=== PATIENT | female | born 1980 | race African-American/Black ===

== ENCOUNTER 2017-06-05 15:04 | Emergency (ER) | payer OTHER ==
[~2017-06-05] VITALS: Ht 157.5 cm; Wt 90.3 kg
[~2017-06-05 15:04] MED LIST: BACTRIM DS TAB1 EAC1 ORAL; CEPHALEXIN500 MG ORAL; HYDROCODON-ACE1 EA15 ORAL; NITROFURANTOIN100 M2 ORAL; VALACYCLOVIR500 MG ORAL
[2017-06-05 16:35] LABS: BASOPHILS % (AUTO) 0.7 % (0.0-2.0); EOSINOPHILS % (AUTO) 0.5 % (0.0-3.0); LYMPHOCYTES % (AUTO) 23.4 % (20.0-45.0); MEAN CORPUSCULAR HGB CONC 35.4 G/DL (32.0-36.0); MEAN CORPUSCULAR VOLUME 102 FL (80-99); MEAN PLATELET VOLUME 7.6 FL (6.5-10.1); MONOCYTES % (AUTO) 3.7 % (1.0-10.0); NEUTROPHILS % (AUTO) 71.6 % (45.0-75.0); PLATELET COUNT 265 K/UL (150-450); RED BLOOD COUNT 3.94 M/UL (4.20-5.40); RED CELL DISTRIBUTION WIDTH 11.6 % (11.6-14.8); WHITE BLOOD COUNT 14.3 K/UL (4.8-10.8)
[2017-06-05 16:35] LABS: APPEARANCE,URINE CLEAR; KETONES,URINE NEGATIVE (NEGATIVE); LEUKOCYTE ESTERASE ,URINE NEGATIVE (NEGATIVE); NITRITE,URINE NEGATIVE (NEGATIVE); PH,URINE 8 (4.5-8.0); PROTEIN,URINE NEGATIVE (NEGATIVE); UROBILINOGEN,URINE NORMAL MG/DL (0.0-1.0)
[2017-06-05 17:02] LABS: ANION GAP 11 (5-15); CALCIUM 9.8 mg/dL (8.6-10.2); CARBON DIOXIDE 26 mEQ/L (20-30); CHLORIDE 100 mEQ/L (98-107); CREATININE 0.8 mg/dL (0.5-0.9); GLOMERULAR FILTRATION RATE > 60 mL/min (>60); HEMOLYSIS 4; POTASSIUM 3.9 mEQ/L (3.4-4.9); SODIUM 137 mEQ/L (135-145)
--- NOTE | 2017-06-05 17:45 | Emergency Room Report ---
History of Present Illness General Chief Complaint: Complications Present Illness HPI 36 YO Female presents to the ED c/o vaginal spotting 2 days ago with lower uterine cramping today and yesterday. Pt. reported foul smell/ d/c 2 days prior to spotting. denies N/V/F/C, constipation, diarrhea. denies abdominal tenderness. Pt. estimates to be approximately 5.5 weeks . has a ex of ectopic , is . Denies CP, Palpitations, LOC, AMS, dizziness, Changes in Vision, Sensation, paresthesias, or a sudden severe headache. Allergies: Coded Allergies: No Known Allergies (Unverified , 06/21/15) Patient History Past Medical History: see triage record Past Surgical History: none Pertinent Family History: none Now: Yes Immunizations: UTD Reviewed Nursing Documentation: PMH: Agreed, PSxH: Agreed Nursing Documentation-PMH Hx Hypertension: No - ectopic Review of Systems All Other Systems: negative except mentioned in HPI Physical Exam Vital Signs Date Time Temp Pulse Resp B/P Pulse Ox O2 Delivery O2 Flow Rate FiO2 06/05/17 15:34 98.4 96 20 120/75 97 Room Air Sp02 EP Interpretation: reviewed, normal General Appearance: no apparent distress, alert, GCS 15, non-toxic Head: normocephalic, atraumatic Eyes: bilateral eye PERRL, bilateral eye normal inspection ENT: hearing grossly normal, normal pharynx, no angioedema, normal voice Neck: full range of motion, supple/symm/no masses Respiratory: lungs clear, normal breath sounds, speaking full sentences Cardiovascular #1: regular rate, rhythm, no edema Gastrointestinal: normal bowel sounds, non tender, soft, no guarding, no rebound Rectal: deferred Genitourinary: normal inspection, no CVA tenderness Musculoskeletal: back normal, gait/station normal, normal range of motion, non- tender Neurologic: alert, oriented x3, responsive, motor strength/tone normal, sensory intact, speech normal Psychiatric: judgement/insight normal, memory normal, mood/affect normal Skin: normal color, no rash, warm/dry, well hydrated Medical Decision Making PA Attestation Dr. Alamo is my supervising Physician whom patient management has been discussed with. Diagnostic Impression: Primary Impression: Miscarriage Additional Impression: demise, less than 22 weeks ER Course 36 YO Female presents to the ED c/o vaginal spotting 2 days ago with lower uterine cramping today and yesterday. Pt. reported foul smell/ d/c 2 days prior to spotting. denies N/V/F/C, constipation, diarrhea. denies abdominal tenderness. Pt. estimates to be approximately 5.5 weeks . has a ex of ectopic , is . Denies CP, Palpitations, LOC, AMS, dizziness, Changes in Vision, Sensation, paresthesias, or a sudden severe headache. Ddx considered but are not limited to: Fibroid, ectopic , Fibroid, Spontaneous ,miscarriage Vital signs: are WNL, pt. is afebrile H&PE are most consistent with: spotting during early will do imaging and labs. ORDERS: -CBC: 14.6 elevated WBC's -UA: WNL/unremarkable -Urine hcg- Positive -serum Hcg Quant: [id number] - Blood/RH type and screen- see attached labs -Pelvic US complete- Double (2) intrauterine pregnancies IUP, no HR estimated to be 6 weeks gestation. ED INTERVENTIONS: -OBGYN CONSULT Dr. Salcido : (female provider ) She stated that this is not an emergent condition, and that pt. insurance will not authorize admission. Dr. Salcido stated that pt. is stable for outpatient follow up at local OBGYN clinic, and she does not encourage antibiotics. D/w supervising physician that I still believe pt. can benefit from oral abx due to the fact that it will take time for her to be seen at OBGYN clinic, pt. reported foul smell/ d/c 2 days prior to spotting, and that pt. has elevated WBC. Supervising physician agreed with prophylactic treatment with oral abx. DISCHARGE: At this time pt. is stable for d/c to home. Will provide printed patient care instructions, and any necessary prescriptions. Care plan and follow up instructions have been discussed with the patient prior to discharge. Labs Test 06/05/17 15:40 06/05/17 16:04 Urine Color Yellow Urine Appearance Clear Urine pH 8 (4.5-8.0) Urine Specific [place] 1.015 (1.005-1.035) Urine Protein Negative (NEGATIVE) Urine Glucose (UA) Negative (NEGATIVE) Urine Ketones Negative (NEGATIVE) Urine Occult Blood Negative (NEGATIVE) Urine Nitrite Negative (NEGATIVE) Urine Bilirubin Negative (NEGATIVE) Urine Urobilinogen Normal MG/DL (0.0-1.0) Urine Leukocyte Esterase Negative (NEGATIVE) Urine HCG, Qualitative Positive White Blood Count 14.3 K/UL (4.8-10.8) Red Blood Count 3.94 M/UL (4.20-5.40) Hemoglobin 14.2 G/DL (12.0-16.0) Hematocrit 40.1 % (37.0-47.0) Mean Corpuscular Volume 102 FL (80-99) Mean Corpuscular Hemoglobin 36.0 PG (27.0-31.0) Mean Corpuscular Hemoglobin Concent 35.4 G/DL (32.0-36.0) Red Cell Distribution Width 11.6 % (11.6-14.8) Platelet Count 265 K/UL (150-450) Mean Platelet Volume 7.6 FL (6.5-10.1) Neutrophils (%) (Auto) 71.6 % (45.0-75.0) Lymphocytes (%) (Auto) 23.4 % (20.0-45.0) Monocytes (%) (Auto) 3.7 % (1.0-10.0) Eosinophils (%) (Auto) 0.5 % (0.0-3.0) Basophils (%) (Auto) 0.7 % (0.0-2.0) Sodium Level 137 mEQ/L (135-145) Potassium Level 3.9 mEQ/L (3.4-4.9) Chloride Level 100 mEQ/L (98-107) Carbon Dioxide Level 26 mEQ/L (20-30) Anion Gap 11 (5-15) Blood Urea Nitrogen 7 mg/dL (7-23) Creatinine 0.8 mg/dL (0.5-0.9) Estimat Glomerular Filtration Rate > 60 mL/min (>60) Glucose Level 93 mg/dL (74-106) Calcium Level 9.8 mg/dL (8.6-10.2) Human Chorionic Gonadotropin, Quant [id number] mIU/mL Last Vital Signs Date Time Temp Pulse Resp B/P Pulse Ox O2 Delivery O2 Flow Rate FiO2 06/05/17 15:34 98.4 96 20 120/75 97 Room Air Disposition: HOME, SELF-CARE Condition: Stable Scripts Doxycycline Hyclate* (VIBRAMYCIN*) 100 Mg Capsule 100 MG ORAL EVERY 12 HOURS for 7 Days, #14 CAP 0 Refills Prov: Tereza Mccarthy 06/05/17 Ibuprofen* (MOTRIN*) 600 Mg Tablet 600 MG ORAL THREE TIMES A DAY, #30 TAB 0 Refills Prov: Tereza Mccarthy 06/05/17 Referrals: [facility] (PCP) Patient Instructions: Miscarriage, [id number] Additional Instructions: Take medications as directed. Follow up with a OBGYN and contact your PCP in 3 days, even if your symptoms have resolved. --Please review list of primary care clinics, if you do not already have a primary care provider Return sooner to ED if new symptoms occur, or current symptoms become worse. - Please note that this Emergency Department Report was dictated using Backpacktechnical administrator technology software, occasionally this can lead to erroneous entry secondary to interpretation by the dictation equipment. Tereza Mccarthy Jun 05, 2017 17:45
[2017-06-05] MEDS ORDERED: VIBRAMYCIN100 MG ORAL (17:50)
[2017-06-05] MEDS ORDERED: IBUPROFEN600 MG ORAL (17:50)
[2017-06-05 18:17] VITALS: BP 110/71
--- NOTE | 2017-06-06 09:41 | Diagnostic Imaging Report ---
Indication: 36-year-old female with pain Technique: Transabdominal and endovaginal pelvic ultrasound was performed. Findings: Uterus measures 11.1 x 7.1 cm. There is a heterogeneous uterine mass measuring 4.2 cm suggestive of a fibroid. An additional 1.5 cm partially calcified mass is suggestive of a fibroid. There is an intrauterine gestational sac with visualization of a yolk sac and a pole with estimated gestational age of 7 weeks 2 days by crown-rump length measuring 1.1 cm. heart tones are not definitively identified at this time. There is a small of free fluid in the pelvic cul-de-sac and right adnexa. Right ovary measures 3.4 x 2.1 cm with follicular changes and a 1.4 cm paraovarian cyst. Left ovary measures 3.9 x 2.0 cm with follicular changes. Color and Doppler flow are demonstrated to the ovaries bilaterally. Impression: Intrauterine with estimated gestational age of 7 weeks 2 days by crown-rump length measuring 1.1 cm. heart tones not identified at this time and failed first trimester should be considered. Clinical correlation and short-term followup ultrasound recommended. 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 Repeat ultrasound recommended for further evaluation. Small amount of free fluid in the pelvic cul-de-sac. Uterine masses of the above suggestive of fibroids. Clinical correlation recommended. Color flow demonstrated to the bilateral ovaries. Right paraovarian cyst measuring 1.4 cm.
== END 2017-06-05 18:17 | disposition home or self-care (01) ==
LOC: EMR 16:00
DX: O03.9 Complete or unspecified spontaneous abortion without complication (principal)
CPT/HCPCS: 36415; 76801; 76830; 80048; 81003; 81025; 84702; 85025; 86900; 86901; 99284

== ENCOUNTER 2018-06-29 03:09 | Emergency (ER) | payer OTHER ==
[~2018-06-29] VITALS: Ht 157.5 cm; Wt 84.8 kg
[~2018-06-29 03:09] MED LIST changes: +IBUPROFEN600 MG ORAL; +VIBRAMYCIN100 MG ORAL
[2018-06-29] MEDS ORDERED: NKM (03:28)
[2018-06-29 03:51] VITALS: BP 121/78
[2018-06-29] MEDS ORDERED: DOXYCYCLINE MO100 MG ORAL (04:12)
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
[2018-06-29] MEDS ORDERED: Tetanus/Diptheria/Pertussis Vaccine 0.5ml Syr IM ONE (04:15)
[2018-06-29] MEDS ORDERED: Lidocaine 1% MPF 10mg/ml 5ml INJ ONE (04:15)
[2018-06-29] MEDS ORDERED: Azithromycin 250mg tab ORAL ONE (04:15)
[2018-06-29] MEDS ORDERED: Bacitracin Oint UD TOPIC ONE (04:15)
[2018-06-29 04:37] VITALS: BP 121/78
== END 2018-06-29 04:39 | disposition home or self-care (01) ==
LOC: EMR 03:44
DX: S51.831A Puncture wound without foreign body of right forearm, initial encounter (principal); X99.2XXA Assault by sword or dagger, initial encounter; Y92.9 Unspecified place or not applicable; Z23 Encounter for immunization
CPT/HCPCS: 90471; 90715; 99283; J0696; Q0144

== ENCOUNTER 2020-01-11 23:11 | Emergency (ER) | payer OTHER ==
[~2020-01-11] VITALS: Ht 157.5 cm; Wt 90.3 kg
[~2020-01-11 23:11] MED LIST changes: +DOXYCYCLINE MO100 MG ORAL; +NKM
[2020-01-11 23:30] VITALS: BP 112/80
--- NOTE | 2020-01-11 23:30 | NUR ---
ED Nurse Note: Pt walked into ED from home for c/o abdominal pain and foul smelling vaginal odor and discharge x 3 days. Pt is aaox4, no acute distress noted and ambulatory with steady gait.
[2020-01-11] MEDS ORDERED: Lidocaine 1% MPF 10mg/ml 5ml INJ ONE (23:45)
[2020-01-11] MEDS ORDERED: Azithromycin 250mg tab ORAL ONE (23:45)
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
[2020-01-11 23:50] LABS: APPEARANCE,URINE CLEAR; BILIRUBIN, URINE NEGATIVE (NEGATIVE); GLUCOSE, URINE (UA) NEGATIVE (NEGATIVE); KETONES,URINE NEGATIVE (NEGATIVE); LEUKOCYTE ESTERASE ,URINE 1+ (NEGATIVE); NITRITE,URINE NEGATIVE (NEGATIVE); PH,URINE 6.5 (4.5-8.0); PROTEIN,URINE NEGATIVE (NEGATIVE); UROBILINOGEN,URINE 1 MG/DL (0.0-1.0)
[2020-01-11 23:51] LABS: COLOR,URINE YELLOW
[2020-01-12 01:15] VITALS: BP 112/80
--- NOTE | 2020-01-12 01:15 | NUR ---
ER DISCHARGE NOTE: Patient is cleared to be discharged per ERMD, pt is aox4, on room air, with stable vital signs. pt was given dc and prescription instructions, pt was able to verbalize understanding, pt id band removed. pt is able to ambulate with steady gait. pt took all belongings.
== END 2020-01-12 01:15 | disposition home or self-care (01) ==
LOC: EMR 23:59
DX: N72 Inflammatory disease of cervix uteri (principal)
CPT/HCPCS: 81003; 81025; 87210; 96372; 96374; J0696; Q0144; Z7502; 99284